=== PATIENT | female | born 1960 | race Caucasian/White ===

== ENCOUNTER 2017-02-15 10:03 | Inpatient (IN) | payer BC ==
[~2017-02-15] VITALS: Ht 157.5 cm; Wt 58.7 kg
[~2017-02-15 10:03] MED LIST: CHLO1CAP PO; ESTR8.1S2 TP; HYDR-3241 PO; LEVO500T47; MESA500C PO; PRED5TAB PO; TRAM50TA2 PO
[2017-02-15] MEDS ORDERED: HYDROmorphone 1 MG/ML, 1ML ONE ×3 (11:42→14:05)
[2017-02-15] MEDS ORDERED: ONDANSETRON 2MG/ML, 2ML ONE ×2 (11:42→12:40)
[2017-02-15] MEDS: HYDROmorphone 1 MG/ML, 1ML IVPush PRN ×4 (11:44→20:42)
[2017-02-15 11:51] LABS: HEMATOCRIT 47.3 % (34.6-47.8); HEMOGLOBIN 16.1 g/dL (11.7-16.4); WHITE BLOOD COUNT 13.5 x10^3/uL (3.4-10)
[2017-02-15] MEDS ORDERED: SODIUM CHLORIDE FLUSH 10ML SYR IVF ONE ×2 (12:00)
[2017-02-15] MEDS ORDERED: SODIUM CHLORIDE 0.9% 1,000ML IVBOLUS ONE (12:00)
[2017-02-15] MEDS ORDERED: ONDANSETRON 2MG/ML, 2ML IVPush ONE ×2 (12:00→14:00)
[2017-02-15] MEDS ORDERED: MORPHINE SULFATE 4 MG/ML, 1ML IVPush PRN (12:00)
[2017-02-15 12:02] LABS: BLOOD UREA NITROGEN 12 mg/dL (7-18)
[2017-02-15 12:06] LABS: ASPARTATE AMINO TRANSFERASE 17 U/L (15-37)
[2017-02-15] MEDS ORDERED: HYDROmorphone 1 MG/ML, 1ML IVPush PRN (14:00)
[2017-02-15] MEDS ORDERED: PROMETHAZINE 25 MG/ML, 1ML ONE (14:05)
[2017-02-15] MEDS ORDERED: PROMETHAZINE 25 MG/ML, 1ML IM ONE (14:30)
[2017-02-15] MEDS ORDERED: POLYETHYLENE GLYCOL 17 GM PACKET PO PRN (17:00)
[2017-02-15] MEDS ORDERED: ACETAMINOPHEN 325 MG TABLET PO PRN (17:00)
[2017-02-15] MEDS ORDERED: DOCUSATE 100 MG CAPSULE PO PRN (17:00)
[2017-02-15] MEDS ORDERED: LORazepam 2 MG/ML, 1ML IVPush PRN (17:00)
[2017-02-15] MEDS ORDERED: BISACODYL 10 MG SUPP PR PRN (17:00)
[2017-02-15] MEDS ORDERED: ONDANSETRON ODT 4 MG PO PRN (17:00)
[2017-02-15] MEDS: ONDANSETRON 2MG/ML, 2ML IVPush PRN (17:50)
[2017-02-15 18:10] VITALS: BP 169/95
[2017-02-15] MEDS ORDERED: LABETALOL 5MG/ML, 20ML IVPush PRN (18:30)
[2017-02-15] MEDS: POTASSIUM CHLORIDE 20 MEQ in SODIUM CHLORIDE 0.9% 1,000 ML IV SCH (18:42)
[2017-02-15] MEDS: PANTOPRAZOLE 40 MG IV IVPush SCH (18:43)
[2017-02-15 19:22] VITALS: BP 98/65
[2017-02-15] MEDS ORDERED: MAGNESIUM SULFATE PMX 2GM/50ML 50 ML IV ONE (20:00)
[2017-02-15] MEDS: PROMETHAZINE 25 MG/ML, 1ML IM PRN (20:41)
[2017-02-15] MEDS: NORTRIPTYLINE 25 MG CAPSULE PO SCH (20:46)
[2017-02-15] MEDS ORDERED: POTASSIUM PHOSPHATE 44 MEQ in SODIUM CHLORIDE 0.9% 500 ML IV ONE (21:00)
[2017-02-16] MEDS: ONDANSETRON 2MG/ML, 2ML IVPush PRN ×4 (00:42→19:45)
[2017-02-16] MEDS: HYDROmorphone 1 MG/ML, 1ML IVPush PRN ×5 (00:43→19:46)
[2017-02-16] MEDS: PROMETHAZINE 25 MG/ML, 1ML IM PRN ×4 (03:45→23:46)
[2017-02-16 04:00] VITALS: BP 120/70
[2017-02-16 05:27] LABS: HEMATOCRIT 37.2 % (34.6-47.8); HEMOGLOBIN 12.6 g/dL (11.7-16.4)
[2017-02-16 05:36] LABS: BLOOD UREA NITROGEN 7 mg/dL (7-18)
[2017-02-16 05:40] LABS: ASPARTATE AMINO TRANSFERASE 10 U/L (15-37)
[2017-02-16] MEDS: PANTOPRAZOLE 40 MG IV IVPush SCH ×2 (08:28→22:08)
[2017-02-16] MEDS: POTASSIUM CHLORIDE 20 MEQ in SODIUM CHLORIDE 0.9% 1,000 ML IV SCH ×2 (08:28→18:31)
[2017-02-16 08:30] VITALS: BP 111/69
[2017-02-16] MEDS ORDERED: HYDROmorphone 1 MG/ML, 1ML IVPush PRN (08:30)
[2017-02-16] MEDS: LORazepam 1MG TABLET PO PRN ×2 (09:49→20:02)
[2017-02-16 14:30] VITALS: BP 108/64
[2017-02-16 19:42] VITALS: BP 108/72
[2017-02-16] MEDS: NORTRIPTYLINE 25 MG CAPSULE PO SCH (22:08)
[2017-02-16] MEDS: OXYcodone IR 5MG TABLET PO PRN (23:45)
[2017-02-17 01:50] VITALS: BP 114/74
[2017-02-17] MEDS: ONDANSETRON 2MG/ML, 2ML IVPush PRN ×3 (01:56→22:04)
[2017-02-17] MEDS: POTASSIUM CHLORIDE 20 MEQ in SODIUM CHLORIDE 0.9% 1,000 ML IV SCH ×3 (03:11→23:24)
[2017-02-17 05:51] LABS: HEMATOCRIT 38.6 % (34.6-47.8); HEMOGLOBIN 12.9 g/dL (11.7-16.4); WHITE BLOOD COUNT 6.6 x10^3/uL (3.4-10)
[2017-02-17 06:07] LABS: ASPARTATE AMINO TRANSFERASE 14 U/L (15-37); BLOOD UREA NITROGEN 7 mg/dL (7-18)
[2017-02-17 08:30] VITALS: BP 124/79
[2017-02-17] MEDS: PANTOPRAZOLE 40 MG IV IVPush SCH ×2 (09:30→19:56)
[2017-02-17 14:30] VITALS: BP 134/70
[2017-02-17] MEDS: OXYcodone IR 5MG TABLET PO PRN ×2 (15:51→20:00)
[2017-02-17] MEDS: LORazepam 1MG TABLET PO PRN ×2 (15:51→20:00)
[2017-02-17] MEDS: NORTRIPTYLINE 25 MG CAPSULE PO SCH (19:56)
[2017-02-17 20:05] VITALS: BP 169/94
[2017-02-17] MEDS: PROMETHAZINE 25 MG/ML, 1ML IM PRN (20:28)
[2017-02-17] MEDS ORDERED: LABETALOL 5MG/ML, 20ML IVPush PRN (20:30)
[2017-02-17] MEDS ORDERED: POLYETHYLENE GLYCOL 17 GM PACKET PO PRN (20:30)
[2017-02-17] MEDS ORDERED: LORazepam 2 MG/ML, 1ML IVPush PRN (20:30)
[2017-02-17] MEDS ORDERED: DOCUSATE 100 MG CAPSULE PO PRN (20:30)
[2017-02-17] MEDS ORDERED: ONDANSETRON ODT 4 MG PO PRN (20:30)
[2017-02-17] MEDS ORDERED: FLU VACC QS2017-18 (36MOS+) UP/PF 0.5 ML IM-VACC ONE (20:30)
[2017-02-17] MEDS ORDERED: BISACODYL 10 MG SUPP PR PRN (20:30)
[2017-02-17] MEDS ORDERED: ACETAMINOPHEN 325 MG TABLET PO PRN (20:30)
[2017-02-17] MEDS: HYDROmorphone 1 MG/ML, 1ML IVPush PRN (22:04)
[2017-02-18] MEDS: LORazepam 1MG TABLET PO PRN ×3 (00:06→13:56)
[2017-02-18 00:11] VITALS: BP 101/67
[2017-02-18 01:45] VITALS: BP 107/68
[2017-02-18] MEDS: HYDROmorphone 1 MG/ML, 1ML IVPush PRN (04:23)
[2017-02-18] MEDS: PROMETHAZINE 25 MG/ML, 1ML IM PRN (04:23)
[2017-02-18 05:59] LABS: HEMATOCRIT 37.5 % (34.6-47.8); HEMOGLOBIN 12.8 g/dL (11.7-16.4); WHITE BLOOD COUNT 6.3 x10^3/uL (3.4-10)
[2017-02-18 06:08] LABS: BLOOD UREA NITROGEN 8 mg/dL (7-18)
[2017-02-18 06:13] LABS: ASPARTATE AMINO TRANSFERASE 9 U/L (15-37)
[2017-02-18] MEDS ORDERED: SODIUM CHLORIDE 0.45% 1,000 ML IV SCH (08:00)
[2017-02-18] MEDS ORDERED: NORT25CA PO (08:49)
[2017-02-18] MEDS ORDERED: CLON0.5T PO (08:49)
[2017-02-18] MEDS: ONDANSETRON 2MG/ML, 2ML IVPush PRN (09:02)
[2017-02-18] MEDS: PANTOPRAZOLE 40 MG IV IVPush SCH (09:02)
[2017-02-18] MEDS: OXYcodone IR 5MG TABLET PO PRN ×2 (09:16→13:56)
[2017-02-18 09:20] VITALS: BP 122/82
[2017-02-18 12:46] VITALS: BP 105/73
[2017-02-18] MEDS ORDERED: ONDA4TAB7 PO (13:07)
[2017-02-18] MEDS ORDERED: LORA-445 PO (13:08)
[2017-02-18] MEDS ORDERED: DICY10CA3 PO (13:09)
[2017-02-18] MEDS ORDERED: PANT40TA5 PO (13:52)
== END 2017-02-18 15:07 | disposition home or self-care (01) | DRG 103 ==
LOC: ED 12:23 → EDIP 15:23 → 3NE 17:10
PROVIDERS: ADMIT Internal Medicine; ATTEND Internal Medicine
DX: G43.A0 Cyclical vomiting, in migraine, not intractable (principal); K50.011 Crohn's disease of small intestine with rectal bleeding; D72.829 Elevated white blood cell count, unspecified; F41.9 Anxiety disorder, unspecified; G89.29 Other chronic pain; I10 Essential (primary) hypertension; K58.9 Irritable bowel syndrome, unspecified; Z80.1 Family history of malignant neoplasm of trachea, bronchus and lung; R10.31 Right lower quadrant pain
CPT/HCPCS: 36415; 74177; 78264; 80053; 81001; 83605; 83690; 83735; 84100; 85025; 85651; 86140; 87040; 90686; 96361; 96372; 96374; 96375; 96376; J1170; J2405; J2550; J3480; A9541; C9113; C9898; J2060; J3475; J7030; J7040